=== PATIENT | male | born 1975 | race Caucasian/White ===

== ENCOUNTER 2018-09-26 22:52 | Emergency (ER) | payer OTHER ==
[~2018-09-26] VITALS: Ht 170.2 cm; Wt 72.6 kg
--- NOTE | 2018-09-26 22:56 | NUR ---
PT JERRY FROM HOME, ATTEMPTED SUICIDE BY OD ON TRAZODONE PILLS; PT CAME IN ALERT AND ORIENTED, AAOX4, RESPIRATIONS EVEN AND UNLABORED, NO SOB, NAD NOTED, VSS, PT ON MONITOR, PT TO ER BED 7, MD AT BEDSIDE
--- NOTE | 2018-09-26 23:00 | NUR ---
PT IN BED, CALM, ALERT, VERBALIZES S/I, "I JUST WANT TO ", SUICIDE PRECAUTIIONS STARTED, MADE AWARE
[2018-09-26] MEDS ORDERED: CHARCOAL/SORBITOL SOLUTION 25 G/120 ML TUBE ONE (23:24)
--- NOTE | 2018-09-26 23:27 | NUR ---
URINE COLLECTED AND SENT TO LAB
--- NOTE | 2018-09-26 23:45 | NUR ---
REPORT REC'D FROM HERMES LANE FOR [facility].
[2018-09-26 23:47] LABS: CALCIUM, SERUM 8.5 mg/dL (8.5-10.1); POTASSIUM 3.7 mmol/L (3.5-5.1)
[2018-09-26 23:48] LABS: APPEARANCE,URINE SL CLOUDY (CLEAR); BILIRUBIN,URINE NEGATIVE (NEGATIVE); BLOOD, URINE TRACE Ery/uL (NEGATIVE); COLOR,URINE YELLOW (YELLOW); KETONES,URINE NEGATIVE (NEGATIVE); LEUKOCYTE ESTERASE ,URINE NEGATIVE (NEGATIVE); NITRITE, URINE NEGATIVE (NEGATIVE); PROTEIN,URINE 1+ mg/dl (NEGATIVE); UGLUCOSE NEGATIVE (NEGATIVE); UROBILINOGEN,URINE 0.2 EU/dL (0.2)
[2018-09-26 23:50] LABS: BASOPHILS % (AUTO) 0.4 % (0.0-2.0); EOSINOPHILS % (AUTO) 0.3 % (0.0-6.0); HEMATOCRIT 52 % (39-51); HEMOGLOBIN 17.9 g/dL (13.5-17.5); LYMPHOCYTES % (AUTO) 54.5 % (20.0-44.0); MEAN CORPUSCULAR HGB CONC 35 g/dl (31.0-36.0); MEAN CORPUSCULAR VOLUME 97 fL (80-96); MONOCYTES # (AUTO) 0.4 /CMM (0.1-1.30); MONOCYTES % (AUTO) 5.3 % (2.0-12.0); NEUTROPHILS # (AUTO) 2.9 /CMM (1.8-8.9); NEUTROPHILS % (AUTO) 39.5 % (43.0-81.0); PLATELET COUNT (AUTO) 232 /CMM (150-450); RED BLOOD CELL COUNT(AUTO) 5.37 MIL/uL (4.5-6.0); WHITE BLOOD COUNT (AUTO) 7.3 K/uL (4.3-11.0)
[2018-09-26 23:53] LABS: ALBUMIN 3.9 g/dL (3.4-5.0); BILIRUBIN,DIRECT 0.1 mg/dL (0.0-0.2); BILIRUBIN,TOTAL 0.2 mg/dL (0.2-1.0); TOTAL PROTEIN, SERUM 8.4 g/dL (6.4-8.2)
[2018-09-26 23:54] LABS: SALICYLATE 1.6 mg/dL (2.8-20.0)
--- NOTE | 2018-09-27 00:05 | NUR ---
CXR IN PROGRESS AT THE BEDSIDE.
--- NOTE | 2018-09-27 00:05 | NUR ---
PT STATED THAT HE WAS FEELING SUICIDAL. PT STATED THAT HIS PLAN WAS TO ID ON MEDICATION.
[2018-09-27 00:15] LABS: BACTERIA,URINE None seen /HPF (None Seen); HYALINE CASTS, URINE Few /LPF (None Seen); MUCUS,URINE Many /LPF (None Seen); SQUAMOUS EPITHELIAL CELL,UR Few /HPF (None Seen); WBC,URINE 0-2 /HPF (0-3)
[2018-09-27] MEDS ORDERED: LISI20TA61 PO (00:26)
[2018-09-27] MEDS ORDERED: [UNRECOGNIZED DRUG - OTHER] (00:26)
[2018-09-27] MEDS ORDERED: TRAZODONE (00:26)
[2018-09-27] MEDS ORDERED: HIV MEDICATIONS (00:26)
[2018-09-27 00:40] LABS: LYMPHOCYTES % (MANUAL) 45 % (16-48); MONOCYTES % (MANUAL) 3 % (0-11.0); NEUTROPHILS % (MANUAL) 45 (42-76); REACTIVE LYMPHOCYTES 7 % (0-0)
--- NOTE | 2018-09-27 01:25 | NUR ---
PT AMBULATED TO THE BATHROOM WITH A STEADY GAIT.
--- NOTE | 2018-09-27 01:40 | NUR ---
PT RETURNED TO BED #7 WITH A STEADY GAIT. PT WAS PLACED BACK ON THE MONITOR AND CONTINUOUS PULSE OX. PT STARTED TO CRY "I WISH I WOULD ". " NO ONE CARES ABOUT ME. MY PARTNER DOESN'T EVEN CARE ABOUT ME". I TRIED TO CONSOLE PT. PT APPEARED TO BE APPRECIATIVE AND IS RESTING COMFORTABLY.
--- NOTE | 2018-09-27 03:44 | NUR ---
PT AMBULATED TO THE BATHROOM WITH A STEADY GAIT.
--- NOTE | 2018-09-27 05:19 | NUR ---
PT AMBULATED TO THE BATHROOM WITH A STEADY GAIT.
--- NOTE | 2018-09-27 05:19 | NUR ---
PT RETURNED TO ER BED #7. PT IS STILL QUITE EMOTIONAL AND ASKING IF ANYONE HAS CALLED ABOUT HIM.
--- NOTE | 2018-09-27 05:43 | NUR ---
SPOKE TO TRAVIS, AUTH NUMBER [id number] FOR [facility] CHARGING MACHINE OPERATOR TO ASSESS PT.
--- NOTE | 2018-09-27 05:47 | NUR ---
PROTOCOL FOR AIDS PT. PT NEEDS 1 WEEK OF AIDS MEDICATION.
--- NOTE | 2018-09-27 05:50 | NUR ---
SPOKE TO TRAVIS AT [facility]. IF WE DO NOT HEAR FROM [facility] BY 0900, CALL [phone] - RE: PLACEMENT. ALCOHOL LEVEL FOR [facility] PLACEMENT IS 150, PER TRAVIS. PT TO BE EVALUATED BY OUR PET TEAM. PT DOES NOT NEED TO BE ON A HOLD FOR PLACEMENT. CAN GO VOLUNTARY.
--- NOTE | 2018-09-27 06:00 | NUR ---
PT DENIES SI AT THIS TIME.
[2018-09-27] MEDS ORDERED: LORAZEPAM INJ 2 MG/ML VIAL ONE (06:30)
--- NOTE | 2018-09-27 06:30 | NUR ---
PT USED THE CALL LIGHT AND C/O OF FEELING "STRANGE". PT APPEARED EXTREMELY ANXIOUS, SHAKEY, SLIGHTLY TACHY ON THE MONITOR. DR. CRISTINA WAS NOTIFIED AND VERBAL ORDER FOR 1MG ATIVAN IM. PT REC'D MEDICATION ORDERED.
--- NOTE | 2018-09-27 06:38 | NUR ---
GOING TO CALL PT'S PARTNER, TESS LAMAS, AT [phone] RE: PT'S HOME HIV MEDICATIONS. [facility] NEEDS A WEEKS WORTH TO BE WITH THE PT WHEN TRANSFERRED OUT.
--- NOTE | 2018-09-27 06:39 | NUR ---
PT STATED THAT HE THINKS THE MEDICATIONS ARE TIVIKAY AND PRESCOBIX
--- NOTE | 2018-09-27 06:43 | NUR ---
CALLING PT'S PARTNER, TESS RE: PT'S HOME MEDICATIONS. VOICE MAIL MESSAGE LEFT FOR TESS TO CALL THE ER BACK.
[2018-09-27] MEDS ORDERED: LORAZEPAM 1 MG TABLET ONE ×3 (06:47→14:54)
[2018-09-27] MEDS ORDERED: LORAZEPAM 1 MG TABLET PO ONE ×2 (07:00→15:00)
[2018-09-27] MEDS ORDERED: LORAZEPAM INJ 2 MG/ML VIAL IM ONE (07:00)
--- NOTE | 2018-09-27 07:21 | NUR ---
SPOKE TO PT. PT DENIES SI AND PT'S VSS.
--- NOTE | 2018-09-27 07:27 | NUR ---
REPORT GIVEN TO HERMES PAVON FOR [facility]. SAVANAH INFORMED ABOUT PT'S HOME MEDICATIONS (HIV MEDS) 1 WKS WORTH TO BE WITH PT WHEN TRANSFERRED OUT.
[2018-09-27] MEDS ORDERED: TRAZ-182 PO (09:09)
--- NOTE | 2018-09-27 09:21 | NUR ---
PT RESTING IN BED. DENIES ANY DISCOMFORT AT THIS TIME. SITTER AT BEDSIDE.
--- NOTE | 2018-09-27 10:10 | NUR ---
CORINA RN AT BEDSIDE FOR PSYCH EVAL.
--- NOTE | 2018-09-27 11:31 | NUR ---
SPOKE TO PT DOMESTIC PARTNER, WILL VISIT PT LATER AND BRING HYGIENE MATERIALS.
--- NOTE | 2018-09-27 13:08 | NUR ---
Kezia edmondsondonna in [facility] - 09/27/18 at 1308 by CY
--- NOTE | 2018-09-27 13:08 | NUR ---
Called [facility] and spoke to metallurgical analyst Gaby for status update on the bed assignment. Was told that they are still working onfinding a pharmacy to refill his HIV medication. As soon as it is handled they will give us a call back.
--- NOTE | 2018-09-27 13:47 | NUR ---
CALLED [facility] AT [phone] TO FOLLOW UP ON TRANSFER AND NOTIFY THAT PT HAS MEDS IN HAND
--- NOTE | 2018-09-27 14:31 | NUR ---
CALL [phone] FOR REPORT
--- NOTE | 2018-09-27 14:55 | NUR ---
BED FINDERS CALLED [facility] [address] [phone] BLS ETA 1500
[2018-09-27] MEDS ORDERED: LISINOPRIL (20MG) 20 MG TABLET PO SCH (15:00)
[2018-09-27 15:15] VITALS: BP 146/78
--- NOTE | 2018-09-27 15:19 | NUR ---
REPORT GIVEN TO ANNMARIE AT [facility]. STABLE CONDITION.
== END 2018-09-27 16:20 ==
LOC: ER 22:55
DX: R45.851 Suicidal ideations (principal); F10.129 Alcohol abuse with intoxication, unspecified; F12.10 Cannabis abuse, uncomplicated; R74.0 Nonspecific elevation of levels of transaminase and lactic acid dehydrogenase [LDH]; E11.9 Type 2 diabetes mellitus without complications; I10 Essential (primary) hypertension; F32.9 Major depressive disorder, single episode, unspecified; F41.9 Anxiety disorder, unspecified; F42.8 Other obsessive-compulsive disorder; Z60.2 Problems related to living alone; Z79.899 Other long term (current) drug therapy; Y90.8 Blood alcohol level of 240 mg/100 ml or more
CPT/HCPCS: 36415; 71045-TC; 80048-TC; 80076-TC; 80305; 81000-TC; 85025-TC; G0480; J2060